=== PATIENT | male | born 1980 | race African-American/Black ===

== ENCOUNTER 2016-10-18 12:20 | Emergency (ER) ==
[2016-10-18 12:20] VITALS: BMI 29.4
[2016-10-18 12:32] VITALS: BP 144/91; TEMP 97.6
[2016-10-18] MEDS ORDERED: DECADRON 4 MG/ML SDV IM STA ×2 (12:48)
[2016-10-18] MEDS ORDERED: MORPHINE 4 MG/ML SYRINGE IM STA (12:48)
[2016-10-18] MEDS ORDERED: ZOFRAN 4 MG/2 ML IM STA (12:48)
[2016-10-18] MEDS ORDERED: TORADOL IM STA (12:49)
--- NOTE | 2016-10-18 12:51 | ED.PDOC ---
General ED Provider: Dr. MARILUZ MATHEW Chief Complaint: Back Pain Stated Complaint: back pain lumbar Time Seen by Physician: 12:30 (may at bedside at all times ) Mode of Arrival: Walk-In Information Source: Patient Nursing and Triage Documentation Reviewed and Agree: Yes (no neck pain refusing work up wants pain adressed ) Trauma/Injury Complaint Exam - Trauma Complaint/Exam Location of Pain or Injury: Reports: Back Mechanism of Injury: Reports: Fall (scafolding 3 levels ) Onset/Duration: 2 hours ago Symptoms Are: Still present Timing of Treatment: Immediate Initial Severity: Moderate Current Severity: Moderate Aggravating: Reports: Movement Alleviating: Reports: Rest Associated Signs and Symptoms: Denies: LOC, Confusion, Memory loss, Lethargy, Vomiting, Bleeding, Bruising, Swelling, Extremity disuse, Painful respiration, Hoarseness, Dysphagia, Hemoptysis, Significant blood loss Penetrating Injury Risk Factors: Reports: None Glascow Coma Scale (see protocol): 15 Trauma Findings: Present: Back tenderness. Absent: [place] eyes, Nasal deformity , Dental tenderness, Dental injury, Dental malocclusion, Neck spasm, Crepitus, Trachea displaced, Labored respirations, Decreased breath sounds, Weak pulses, Abdominal distention, Pelvic instability, Abnormal rectal tone Skin Findings: Present: Normal findings Differential Diagnoses: Fracture, Sprain, Strain Review of Systems - Review Of Systems Constitutional: Reports: No symptoms Eyes: Reports: No symptoms Ears, Nose, Mouth, Throat: Reports: No symptoms Respiratory: Reports: No symptoms Cardiac: Reports: No symptoms GI: Reports: No symptoms : Reports: No symptoms Musculoskeletal: Reports: Back pain Skin: Reports: No symptoms Neurological: Reports: No symptoms Endocrine: Reports: No symptoms Hematologic/Lymphatic: Reports: No symptoms All Other Systems: Reviewed and Negative Past Medical History - Past Medical History Previously Healthy: Yes Endocrine: Reports: None Cardiovascular: Reports: None Respiratory: Reports: None Hematological: Reports: None Gastrointestinal: Reports: None Genitourinary: Reports: None Neuro/Psych: Reports: None Musculoskeletal: Reports: None Cancer: Reports: None - Surgical History General Surgical History: Reports: None - Family History Family History: Reports: None - Social History Smoking Status: Current every day smoker, Light tobacco smoker Hx Substance Use: No Alcohol Screening: None Physical Exam - Physical Exam Appearance: Well-appearing, No pain distress, Well-nourished Eyes: RANCHO, EOMI, Conjunctiva clear ENT: Ears normal, Nose normal, Oropharynx normal Respiratory: Airway patent, Breath sounds clear, Breath sounds equal, Respirations nonlabored Cardiovascular: RRR, Pulses normal, No rub, No murmur GI/: Soft, Nontender, No masses, Bowel sounds normal, No Organomegaly Musculoskeletal: Limited ROM (back lumbar) Skin: Warm, Dry, Normal color Neurological: Sensation intact, Motor intact, Reflexes intact, Cranial nerves intact, Alert, Oriented Psychiatric: Affect appropriate, Mood appropriate Critical Care Note - Critical Care Note Total Time (mins): 0 Course - Course Orders, Labs, Meds: Orders Category Date Time Status Dexamethasone 4 mg/ml Inj [Decadron 4 mg/ml Sdv] MEDS 10/18/16 12:48 Stat 4 mg IM ONCE STA Dexamethasone 4 mg/ml Inj [Decadron 4 mg/ml Sdv] MEDS 10/18/16 12:48 Stat 4 mg IM ONCE STA Ketorolac Tromethamine [Toradol] MEDS 10/18/16 12:49 Stat 30 mg IM ONCE STA Morphine Sulfate [Morphine 4 mg/ml Syringe] MEDS 10/18/16 12:48 Stat 4 mg IM ONCE STA Ondansetron HCl/Pf [Zofran 4 mg/2 ml] MEDS 10/18/16 12:48 Stat 4 mg IM ONCE STA Medications Generic Name Dose Route Start Last Admin Trade Name Freq PRN Reason Stop Dose Admin Dexamethasone Sodium Phosphate 4 mg 10/18/16 12:48 Decadron 4 Mg/Ml Sdv IM 10/18/16 12:49 ONCE STA Dexamethasone Sodium Phosphate 4 mg 10/18/16 12:48 Decadron 4 Mg/Ml Sdv IM 10/18/16 12:49 ONCE STA Ketorolac Tromethamine 30 mg 10/18/16 12:49 Toradol IM 10/18/16 12:50 ONCE STA Morphine Sulfate 4 mg 10/18/16 12:48 Morphine 4 Mg/Ml Syringe IM 10/18/16 12:49 ONCE STA Ondansetron HCl 4 mg 10/18/16 12:48 Zofran 4 Mg/2 Ml IM 10/18/16 12:49 ONCE STA Vital Signs: Temp Pulse Resp BP Pulse Ox 10/18/16 12:23 97.6 F 87 18 144/91 H 100 Departure - Departure Time of Disposition: 12:52 (refused work up i explained with may at bedside that he had a significant fall and without work up he can have back, spine or internal injuries . pt refused work up stated he has a legal matter to attend to must leave as soon as possible [employer] AT BEDSIDE ) Disposition: HOME SELF-CARE Discharge Problem: Low back pain Qualifiers: Chronicity: acute Back pain laterality: unspecified Instructions: Back Pain (ED) Condition: Good Pt referred to PMD for follow-up: No Additional Instructions: Please call your Family Physician as soon as possible to schedule a follow-up appointment. Allergies/Adverse Reactions: Allergies Penicillins Adverse Reaction (Verified 10/18/16 12:27) promethazine [From Phenergan] Adverse Reaction (Verified 10/18/16 12:27) Unknown causes hallucinations Home Medications: Ambulatory Orders Hydrochlorothiazide 12.5 mg PO DAILY LAB #30 tablet 05/22/16
== END 2016-10-18 13:52 | disposition home or self-care (01) ==
LOC: ED 12:20
DX: M54.5 Low back pain (principal); W17.89XA Other fall from one level to another, initial encounter; F17.210 Nicotine dependence, cigarettes, uncomplicated
CPT/HCPCS: 96372; 99283